=== PATIENT | male | born 1960 | race Caucasian/White ===

== ENCOUNTER → 2018-01-16 | Outpatient (CLI) | payer BC ==
[~2018-01-16] MED LIST: ALLO100T30 PO; ASPI-515 PO; FENO135C PO; HYDR-3240; LISI5TAB7 PO; ONDA4TAB10 PO; PROTONIX; SIMVISTATIN PO; TAMULOSIN PO
== END | disposition home or self-care (01) ==
LOC: RAD 15:07
PROVIDERS: ATTEND Family Medicine
DX: M79.605 Pain in left leg (principal); R60.0 Localized edema

== ENCOUNTER → 2020-08-05 | Outpatient (CLI) | payer BC, OTHER ==
[~2020-08-05] MED LIST changes: -ASPI-515 PO; +ASPI-963 PO; +HYDR-2214; -HYDR-3240
== END | disposition home or self-care (01) ==
LOC: RAD 16:14
PROVIDERS: ATTEND Family Medicine
DX: M79.661 Pain in right lower leg (principal)